=== PATIENT | female | born 1995 | race Two or more races ===

== ENCOUNTER 2016-06-05 21:43 | Observation (INO) | payer SELFPAY ==
[~2016-06-05] VITALS: Ht 160 cm; Wt 65.3 kg
[~2016-06-05 21:43] MED LIST: NITR100C62 PO
[2016-06-05] MEDS ORDERED: IV RINGERS,LACTATED 1000ML 1,000 ML IV SCH (21:45)
[2016-06-05 22:22] VITALS: BP 138/80
[2016-06-05 22:51] LABS: BILIRUBIN,URINE NEGATIVE (NEG); GLUCOSE,URINE NEGATIVE (NEG); NITRITE,URINE NEGATIVE (NEG); PH,URINE 7.5; PROTEIN,URINE NEGATIVE (NEG-TRACE); UROBILINOGEN,URINE 0.2 mg/dL (0.2 mg/dL)
[2016-06-05 23:05] LABS: RBC,URINE OCC /HPF (0-2)
[2016-06-05 23:06] LABS: BACTERIA,URINE MODERATE /HPF (0-FEW); SQUAMOUS EPITHELIAL CELL,UR MOD /LPF
[2016-06-06] MEDS ORDERED: HYDROXYZINE PAMOATE 25 MG CAPSULE PO ONE
== END 2016-06-05 23:59 | disposition home or self-care (01) ==
LOC: 3 SO LND 21:43
PROVIDERS: ADMIT Specialist; ATTEND Specialist
DX: O42.92 Full-term premature rupture of membranes, unspecified as to length of time between rupture and onset of labor (principal); O62.9 Abnormality of forces of labor, unspecified; Z3A.39 39 weeks gestation of pregnancy
CPT/HCPCS: 81001; 87086; G0378; G0379; Q0177

== ENCOUNTER 2016-06-06 03:57 | Inpatient (IN) | payer SELFPAY ==
[~2016-06-06] VITALS: Ht 160 cm; Wt 65.3 kg
[2016-06-06] MEDS ORDERED: TERBUTALINE 1 MG/ML VIAL. SQ PRN (04:00)
[2016-06-06] MEDS ORDERED: OXYTOCIN 30 UNIT/500 ML PREMIX 500 ML IV PRN ×2 (04:00→13:00)
[2016-06-06] MEDS ORDERED: 0.9 % SODIUM CHLORIDE 10 ML DISP.SYRIN. IV PRN ×2 (04:00→13:00)
[2016-06-06] MEDS ORDERED: FENTANYL PF 100 MCG/2 ML VIAL. IV PRN (04:00)
[2016-06-06] MEDS ORDERED: MAG HYDROX/ALUMINUM HYD/SIMETH 30 ML ORAL.SUSP PO PRN ×2 (04:00→13:00)
[2016-06-06] MEDS ORDERED: LIDOCAINE 1% PF 30 ML VIAL. INJ PRN (04:00)
[2016-06-06] MEDS ORDERED: ONDANSETRON PF 4 MG/2 ML VIAL. IV PRN ×2 (04:00→13:00)
[2016-06-06] MEDS ORDERED: IBUPROFEN 800 MG TABLET. PO PRN (04:00)
[2016-06-06 04:33] VITALS: BP 118/67
[2016-06-06] MEDS: IV RINGERS,LACTATED 1000ML 1,000 ML IV SCH ×5 (04:39→18:19)
[2016-06-06] MEDS: BUTORPHANOL 2 MG/ML VIAL. IV PRN ×2 (05:08→09:09)
[2016-06-06 05:30] LABS: HEMATOCRIT 29.5 % (36.0-47.0); HEMOGLOBIN 9.4 g/dL (12.0-15.5); RED BLOOD COUNT 4.14 x10^6/uL (3.50-5.40); RED CELL DISTRIBUTION WIDTH 18.2 % (11.5-14.5); WHITE BLOOD COUNT 14.4 x10^3/uL (4.0-11.0)
[2016-06-06] MEDS ORDERED: L&D EPIDURAL CASSETTE 100 ML EP ONE (11:01)
[2016-06-06] MEDS ORDERED: ROPIVacaine 0.2% IN 0.9%NACL PF 40 MG/20 ML DISP.SYRIN. ONE (11:01)
[2016-06-06] MEDS ORDERED: AMPICILLIN SODIUM 2 GM in IV NORMAL SALINE 100ML 100 ML IV ONE (12:30)
[2016-06-06 12:50] LABS: BASO # 0.1 x10^3/uL (0.0-0.2); BASO % 1 % (0-3); EOS % 0 % (0-3); HEMATOCRIT 26.2 % (36.0-47.0); HEMOGLOBIN 8.1 g/dL (12.0-15.5); LYMPH # 0.4 x10^3/uL (1.0-4.8); LYMPH % 4 % (24-48); MEAN CORPUSCULAR HEMOGLOBIN 22 pg (25-35); MEAN CORPUSCULAR HGB CONC 31 g/dL (31-37); MEAN CORPUSCULAR VOLUME 72 fL (79-100); MONO % 5 % (0-9); NEUT % 91 % (31-73); PLATELET COUNT 242 x10^3/uL (140-400); RED BLOOD COUNT 3.62 x10^6/uL (3.50-5.40); RED CELL DISTRIBUTION WIDTH 18.4 % (11.5-14.5); WHITE BLOOD COUNT 12.5 x10^3/uL (4.0-11.0)
[2016-06-06] MEDS ORDERED: CITRIC ACID/SODIUM CITRATE 30 ML SOLUTION. ONE (12:58)
[2016-06-06] MEDS ORDERED: SIMETHICONE 80 MG TAB.CHEW PO PRN (13:00)
[2016-06-06] MEDS ORDERED: DOCUSATE SODIUM 100 MG CAPSULE PO PRN (13:00)
[2016-06-06] MEDS ORDERED: MMR per PROTOCOL. MC PRN (13:00)
[2016-06-06] MEDS ORDERED: DIPHENHYDRAMINE ORAL ELIXIR 12.5 MG/5 ML. PO PRN (13:00)
[2016-06-06] MEDS ORDERED: ZOLPIDEM 5 MG TABLET. PO PRN (13:00)
[2016-06-06] MEDS ORDERED: MAGNESIUM HYDROXIDE 2,400 MG/30 ML ORAL.SUSP. PO PRN (13:00)
--- NOTE | 2016-06-06 13:01 | PDOC1 ---
OB - History Hx of Present Care: Good Care Ultrasounds: Normal mid trimester US Obstetrical Complications: None Medical Complications: None Past Family/Social History * Past Medical, Surgical, Family and Obstetric Histories reviewed from chart. Blood Type: O+ Rubella: Immune RPR/VDRL: Negative GBS Status: Negative HBsAG: Negative OB - Chief Complaint & HPI Date of Admission: Date of Admission: Jun 06, 2016 at 08:56 Chief Complaint/History : 1 Para: 0 EDC: Jun 06, 2016 Reason for admission: active labor Admission Nurse Assessment Rev: Yes Problems: OB - Admission Exam Physical Exam Vitals: VS - Last 72 Hours, by Label Date Time Temp Pulse Resp B/P Pulse Ox O2 Delivery O2 Flow Rate FiO2 06/06/16 09:09 20 Room Air 06/06/16 05:33 18 Room Air 06/06/16 05:08 20 Room Air 06/06/16 04:33 98.2 77 20 118/67 Room Air 98.2 HEENT: Normal, Nasal Mucosa Normal, Oropharynx Normal, Moist Membranes, Fontanelles Normal Heart: Regular Rate Lungs: Clear, Equal Abdomen: Gravid Extremities: Normal Pulses, No tenderness or swelling Cervical Dilatation: 3cm Effacement: 75% Station: -2 Membranes: Ruptured Amniotic Fluid: Clear Heart Rate: Tachycardia Accelerations: Accelerations Present Short Term Variability: Present Intensity: Firm Assessment/Plan TIUP Labor ACS RENETTA MERCADO MD Jun 06, 2016 13:01
[2016-06-06] MEDS ORDERED: DEXAMETHASONE SOD PHOS 20 MG/5 ML VIAL. ONE (13:13)
[2016-06-06] MEDS ORDERED: METOCLOPRAMIDE HCL 10 MG/2 ML VIAL. ONE (13:13)
[2016-06-06] MEDS ORDERED: ONDANSETRON PF 4 MG/2 ML VIAL. ONE (13:13)
[2016-06-06] MEDS ORDERED: FAMOTIDINE 20 MG/2 ML VIAL ONE (13:13)
[2016-06-06] MEDS: IBUPROFEN 800 MG TABLET. PO SCH ×2 (14:00→22:00)
[2016-06-06] MEDS ORDERED: OXYTOCIN 10 UNIT/ML VIAL. ONE ×2 (14:01→17:03)
[2016-06-06] MEDS ORDERED: FENTANYL PF 100 MCG/2 ML VIAL. ONE ×2 (14:02)
[2016-06-06] MEDS ORDERED: SUCCINYLCHOLINE 200 MG/10 ML VIAL. ONE (14:02)
[2016-06-06] MEDS ORDERED: PROPOFOL 20 ML IV ONE (14:02)
[2016-06-06 14:19] LABS: ANISOCYTOSIS SLIGHT; HYPOCHROMIA MOD; MICROCYTOSIS SLIGHT; PLT ESTIMATE ADEQUATE (ADEQUATE); POLYCHROMASIA SLIGHT
[2016-06-06] MEDS ORDERED: SEVOFLURANE 61 TO 120 MINUTES. IH ONE (14:24)
[2016-06-06] MEDS ORDERED: HYDROMORPHONE STANDARD PCA 30 ML IV PRN (14:30)
[2016-06-06] MEDS: CEFAZOLIN SODIUM 1 GM in IV NORMAL SALINE 50ML 50 ML IV SCH ×2 (16:23→22:30)
[2016-06-06] MEDS: FERROUS SULFATE 325 MG TABLET PO SCH (17:00)
[2016-06-06] MEDS ORDERED: LIDOCAINE 2% PF Vial for OR 5 ML VIAL. ONE (17:22)
[2016-06-06 18:00] VITALS: BP 132/52
[2016-06-06] MEDS: KETOROLAC TROMETHAMINE 30 MG/ML INJ. IV PRN (18:20)
[2016-06-06 18:30] VITALS: BP 107/62
[2016-06-06 20:18] VITALS: BP 97/53
[2016-06-06 22:00] VITALS: BP 110/65
[2016-06-06] MEDS: ACETAMINOPHEN 325 MG TABLET. PO PRN (22:30)
[2016-06-07 01:00] VITALS: BP 103/57
[2016-06-07] MEDS: IV RINGERS,LACTATED 1000ML 1,000 ML IV SCH (01:07)
[2016-06-07] MEDS: KETOROLAC TROMETHAMINE 30 MG/ML INJ. IV PRN (01:18)
[2016-06-07 05:11] LABS: BASO % 0 % (0-3); EOS % 0 % (0-3); LYMPH # 0.5 x10^3/uL (1.0-4.8); LYMPH % 6 % (24-48); MEAN CORPUSCULAR HEMOGLOBIN 23 pg (25-35); MEAN CORPUSCULAR HGB CONC 32 g/dL (31-37); MEAN CORPUSCULAR VOLUME 72 fL (79-100); MONO % 5 % (0-9); NEUT % 89 % (31-73); PLATELET COUNT 187 x10^3/uL (140-400); RED BLOOD COUNT 3.04 x10^6/uL (3.50-5.40); RED CELL DISTRIBUTION WIDTH 18.2 % (11.5-14.5); WHITE BLOOD COUNT 8.8 x10^3/uL (4.0-11.0)
[2016-06-07 05:14] LABS: HEMOGLOBIN 6.9 g/dL (12.0-15.5)
[2016-06-07 05:30] VITALS: BP 118/66
[2016-06-07] MEDS: CEFAZOLIN SODIUM 1 GM in IV NORMAL SALINE 50ML 50 ML IV SCH (05:36)
[2016-06-07] MEDS: ACETAMINOPHEN 325 MG TABLET. PO PRN (05:55)
[2016-06-07 06:57] LABS: ANISOCYTOSIS MOD; HYPOCHROMIA MOD; MICROCYTOSIS PRESENT; PLT ESTIMATE ADEQUATE (ADEQUATE)
[2016-06-07] MEDS: IBUPROFEN 800 MG TABLET. PO SCH ×3 (08:11→22:00)
[2016-06-07] MEDS: OXYCODONE/APAP 5/325 TABLET. PO PRN ×4 (08:11→21:03)
--- NOTE | 2016-06-07 08:12 | PDOC ---
BRIEF OPERATIVE NOTE Pre-Op Diagnosis TIUP NRFHT Post-Op Diagnosis Same Procedure Performed Primary LTC/S Surgeon Melchor Saleh Anesthesia Type: General Blood Loss 800cc Specimens Obtained Placenta Findings Dictated Complications None RENETTA MERCADO MD Jun 07, 2016 08:12
--- NOTE | 2016-06-07 08:14 | PDOC ---
Provider Note Provider Note Doing well Vital Sign - Last 24 Hours 06/06/16 06/06/16 06/06/16 06/06/16 09:09 16:25 18:00 18:30 Temp 98.6 99.6 98.6 99.6 Pulse 104 111 Resp 18 B/P 132/52 107/62 Pulse Ox 100 95 O2 Delivery Room Air Room Air Room Air Room Air 06/06/16 06/06/16 06/06/16 06/07/16 20:18 22:00 22:00 01:00 Temp 99.3 100.3 101.5 99.3 100.3 101.5 Pulse 98 95 90 Resp B/P 97/53 110/65 103/57 Pulse Ox 99 95 95 94 O2 Delivery Room Air Room Air Room Air Room Air 06/07/16 06/07/16 02:30 05:30 Temp 98.6 100.6 98.6 100.6 Pulse 87 Resp 18 B/P 118/66 Pulse Ox 94 O2 Delivery Room Air Intake and Output 06/06/16 06/06/16 06/07/16 15:00 23:00 07:00 Intake Total 1000 ml 640 ml Output Total 350 ml 790 ml Balance 1000 ml -350 ml -150 ml CBC - BMP 06/06/16 12:35 06/07/16 04:05 Incision without signs of infection cbc CXRay CCC RENETTA MERCADO MD Jun 07, 2016 08:14
--- NOTE | 2016-06-07 08:32 | RAD ---
Chest, 2 views, 06/07/2016: History: Postop fever and cough Comparison is made to a study from 06/02/2015. The heart size and pulmonary vascularity are normal. No pulmonary infiltrate is seen. Slight blunting of the posterior costophrenic angles suggests a trace amount of postoperative pleural fluid. IMPRESSION: 1. Probable tiny pleural effusions. 2. No acute pulmonary is detected.
[2016-06-07] MEDS ORDERED: FLU VACC QUAD 2016-17 (36MOS+)/PF 0.5 ML SYRINGE. VAX IM ONE (09:00)
[2016-06-07] MEDS ORDERED: INFLUENZA VAX SCREEN BY RX. MC ONE (09:00)
[2016-06-07 09:53] VITALS: BP 109/58
[2016-06-07 10:42] LABS: OBC FLU VALID
[2016-06-07] MEDS: OSELTAMIVIR 75 MG CAPSULE PO SCH ×2 (11:19→21:02)
[2016-06-07 12:30] VITALS: BP 118/68
--- NOTE | 2016-06-07 12:43 | OP ---
DATE OF SURGERY: 06/06/2016 PREOPERATIVE DIAGNOSES: 1. Term intrauterine . 2. Nonreassuring heart tones. POSTOPERATIVE DIAGNOSES: 1. Term intrauterine . 2. Nonreassuring heart tones. PROCEDURE: Primary low transverse . SURGEON: Inder Roche M.D. OPTIMIZATION SPECIALIST: Cleveland Saleh M.D. ANESTHESIA: General. ESTIMATED BLOOD LOSS: 800 mL. FLUIDS: Crystalloid. SPECIMENS: Placenta. FINDINGS: Normal uterus, tubes and ovaries, male , Apgars 7 and 8, weight 5 pounds 10 ounces. COMPLICATIONS: None. CONDITION: Stable. DESCRIPTION OF PROCEDURE: After risks, benefits, indications, alternatives discussed in detail with the patient and the patient's family. The patient was brought to the OR theater, placed in supine position with left lateral uterine displacement. After adequate general anesthesia, the patient was prepped and draped in usual sterile manner. A low transverse Pfannenstiel incision was made sharply with scalpel, carried down through the subcutaneous tissue with scalpel. Rectus fascia was nicked in the midline with a scalpel and extended laterally in each direction with the scalpel. The rectus fascia was grasped with gloved hand. The rectus muscle both bluntly and sharply with gloved hand. Same procedure was carried out on lower edge of rectus fascia. Rectus muscle split midline and extended superiorly and inferiorly with gloved hand. Parietal peritoneum was entered bluntly with gloved hand. With gentle stretch on the rectus muscle, room was made for delivery of the infant. The bladder blade was placed. A low transverse hysterotomy incision was made with a scalpel with care not to injure any underlying structures, extended laterally bluntly with gloved hand. Meconium stained fluid was noted. Gloved hand was placed within the lower uterine segment, used to elevate the head. With fundal pressure from the nursing assistants teacher, was delivered on anterior abdominal wall. cried spontaneously and moved all extremities. Cord was doubly clamped, transected cord between two clamps. The infant was handed to nursing care in attendance. Cord segment was taken for pH. Cord blood samples were also taken. The placenta delivered spontaneously intact, 3-vessel cord. Uterus was wiped free of any adherent membranes. A low transverse hysterotomy incision was reapproximated with 0 Monocryl in a running locking manner, imbricated with 0 Monocryl in a horizontal mattress stitch fashion. Bladder flap was reapproximated with 3-0 Vicryl in a running manner. Pelvic gutters were inspected and noted to be free of any blood or debris. The uterus, tubes, and ovaries appeared normal. Lower uterine segment was inspected and noted to be hemostatic. Parietal peritoneum was reapproximated with 3-0 Vicryl in a 0PDS in a running manner. This stitch reapproximated rectus muscle to the midline. Rectus muscle inspected and started to be hemostatic. Rectus fascia was reapproximated with 0 PDS in a running manner running, started at the edges, buried on the stitch. Subcutaneous tissue was irrigated copiously with warm normal saline. Margaux's fascia reapproximated with 2-0 plain in a running manner. Skin was reapproximated with 4-0 Monocryl in subcuticular fashion. Sponge, needle and instrument counts were correct x 2 per nursing staff. The patient went to postop anesthesia recovery in stable condition. INDER ROCHE MD DR: NATHANAEL/edwin JOB#: [id number] / [id number]
[2016-06-07 17:03] VITALS: BP 121/62
[2016-06-07] MEDS ORDERED: HYDROCODONE/APAP 5/325MG TABLET. PO PRN ×2 (18:15)
[2016-06-07] MEDS ORDERED: IV RINGERS,LACTATED 1000ML 1,000 ML IV SCH (19:00)
[2016-06-07 21:00] VITALS: BP 118/71
[2016-06-07] MEDS: DOCUSATE SODIUM 100 MG CAPSULE. PO PRN (21:02)
[2016-06-08 01:00] VITALS: BP 105/59
[2016-06-08] MEDS: OXYCODONE/APAP 5/325 TABLET. PO PRN ×5 (01:35→21:14)
[2016-06-08 06:28] VITALS: BP 109/67
[2016-06-08] MEDS: DOCUSATE SODIUM 100 MG CAPSULE. PO PRN ×2 (08:18→21:14)
[2016-06-08] MEDS: FERROUS SULFATE 325 MG TABLET PO SCH ×2 (08:18→16:55)
[2016-06-08] MEDS: IBUPROFEN 800 MG TABLET. PO SCH ×3 (08:19→22:00)
[2016-06-08] MEDS: OSELTAMIVIR 75 MG CAPSULE PO SCH ×2 (08:19→21:14)
[2016-06-08 12:45] VITALS: BP 116/71
[2016-06-08 17:31] VITALS: BP 92/51
[2016-06-08 21:15] VITALS: BP 105/61
[2016-06-09] MEDS: IBUPROFEN 800 MG TABLET. PO SCH ×3 (00:48→17:31)
[2016-06-09 00:50] VITALS: BP 99/61
[2016-06-09] MEDS: OXYCODONE/APAP 5/325 TABLET. PO PRN ×2 (06:22→15:25)
[2016-06-09 06:25] VITALS: BP 98/56
[2016-06-09] MEDS: OSELTAMIVIR 75 MG CAPSULE PO SCH (08:57)
[2016-06-09] MEDS: FERROUS SULFATE 325 MG TABLET PO SCH ×2 (08:58→17:27)
[2016-06-09 09:00] VITALS: BP 102/63
--- NOTE | 2016-06-09 09:20 | PATHOLOGY ---
PATHOLOGY REPORT * * * * * * * * FINAL DIAGNOSIS: 379 gram placenta of an estimated 39-weeks gestation with attached membranes and umbilical cord: - Intervillous thrombi, several. - Short umbilical cord. COMMENT: There is no evidence of an acute chorioamnionitis or villitis. (JPM:csd; d/t: 06/08/2016) REPORT ELECTRONICALLY SIGNED BY: Talon Tomas M.D. DATE/TIME: 06/09/2016 09:18 * * * * * * * * GROSS PATHOLOGY: The specimen is received in formalin, labeled "Reico, Tere" and additionally labeled "placenta with cord" on the requisition. Received is a 379 g, 16.9 x 15.5 x 3.3 cm discoid vela placenta with attached umbilical cord and membranes and a separate segment of umbilical cord. Upon reconstruction, the umbilical cord measures 23.7 cm in length and 1.2 cm in average diameter. It is white-beauchamp, rubbery, trivascular, and has a paracentral insertion, 4.2 cm from the nearest placental margin. The separate segment of umbilical cord displays 3 white-beauchamp plastic clamps. The helical twisting pattern is decreased. No umbilical strictures or knots are grossly identified. The membranes are pink-beauchamp, thin, translucent, and have a marginal insertion. The point of membrane rupture is 12.4 cm the nearest placental margin. The surface is red-beauchamp to blue-clark with a normal vessel distribution and a minimal amount of subchorionic fibrin deposition. The maternal surface is grossly complete, with intact red-brown cotyledons, adherent blood clots, and minimal calcifications. Sectioning reveals three yellow-beauchamp to red-beauchamp, poorly circumscribed, and firm lesions scattered throughout the placenta. The lesions range from 0.3-1.0 cm in greatest dimension and encompass less than 5% of the total volume of the placenta. The remaining parenchyma is dark red and spongy. Movie Shot Cameraman sections are submitted as follows: A1 umbilical cord and surface vessels A2 membrane roll A3 placental lesions A4 full-thickness section of placenta (TTL; 06/07/2016) INITIAL CPT CODE(S): A; 59275 Professional services performed by [employer] at [facility] [address] [place] [id number] Technical services performed by [employer] at [address] [place] [address], [address], [place] [address]. SPECIMEN(S) RECEIVED: A.Placenta CLINICAL HISTORY: for tachycardia, maternal temp, , EDC 06/11/16, 5lb 10oz male @ 1335 on 06/06/16, apgars 7-8-9 PATIENT: TERE COX /AGE: 2 1995 (Age: 21) PATIENT #: [id number] ALT CASE #: SPECIMEN COLLECTION DATE: 06/06/2016 SPECIMEN RECEIVED DATE: 06/07/2016 [facility] - [id number] [place] [id number] - PHONE: [phone] * * * END OF REPORT * * *
--- NOTE | 2016-06-09 18:23 | PDOC ---
OB Progress Note Date of Service 06/09/16 Time of Evaluation 1824 Problem List Problems Medical Problems: (1) Status: Acute Notes Pt. feeling well. No complaints. Flu symptoms improving. Medications Current Medications Sodium Chloride 3 ml 3 ml QSHIFT PRN IV AFTER MEDS AND BLOOD DRAWS; Start 06/06 at 04:00; Stop 06/07/16 at 00:19; Status DC Lactated Ringer's (Iv Lactated Ringers) 1,000 ml @ 125 mls/hr Q8H IV Last administered on 06/07/16 01:07; Start 06/06/16 at 04:00; Stop 06/07/16 at 18:28 ; Status DC Butorphanol Tartrate (Stadol) 2 mg PRN Q1HR PRN IV Severe labor pain Last administered on 06/06/16 09:09; Start 06/06/16 at 04:00; Stop 06/07/16 at 00:19 ; Status DC Fentanyl Citrate (Fentanyl 2ml Vial) 100 mcg PRN Q30MIN PRN IV Severe pain; Start 06/06/16 at 04:00; Stop 06/07/16 at 00:19; Status DC Acetaminophen (Tylenol) 650 mg PRN Q6HRS PRN PO MILD PAIN / TEMP Last administered on 06/07/16 05:55; Start 06/06/16 at 04:00 Ondansetron HCl (Zofran) 4 mg PRN Q4HRS PRN IV NAUSEA/VOMITING; Start 06/06/16 at 04:00; Stop 06/07/16 at 00:19; Status DC Al Hydroxide/Mg Hydroxide (Mylanta Plus Xs) 30 ml PRN Q4HRS PRN PO HEARTBURN / GAS; Start 06/06/16 at 04:00; Stop 06/07/16 at 00:19; Status DC Terbutaline Sulfate (Brethine) 0.25 mg 1X PRN PRN SQ SEE COMMENTS; Start at 04:00; Stop 06/07/16 at 00:19; Status DC Lidocaine HCl 30 ml 30 ml 1X PRN PRN INJ SEE COMMENTS; Start 06/06/16 at 04:00 ; Stop 06/07/16 at 00:19; Status DC Oxytocin/Sodium Chloride (Oxytocin Premix Infusion) 500 ml @ 0 mls/hr CONT PRN PRN IV Post delivery bleeding; Start 06/06/16 at 04:00; Stop 06/07/16 at 18:28; Status DC Ibuprofen 800 mg 800 mg PRN Q6HRS PRN PO PAIN; Start 06/06/16 at 04:00; Stop at 00:19; Status DC Ropivacaine/ Fentanyl/NS (Zfuaikbg-Tuirj-MJ 3 Mcg-0.1%) 100 ml @ As Directed STK-MED ONCE EP Last administered on 06/06/16 11:36; Start 06/06/16 at 11:01; Stop 06/06/16 at 11:02; Status DC Ropivacaine 40 mg 40 mg STK-MED ONCE .ROUTE Last administered on 06/06/16 11: 35; Start 06/06/16 at 11:01; Stop 06/06/16 at 11:02; Status DC Ampicillin Sodium/ Sodium Chloride (Omnipen/Iv Sodium Chloride 0.9% 100ml) 100 ml @ 200 mls/hr 1X ONCE IV Last administered on 06/06/16 12:26; Start at 12:30; Stop 06/07/16 at 00:19; Status DC Citric Acid/ Sodium Citrate (Bicitra) 30 ml STK-MED ONCE .ROUTE Last administered on 06/06/16 13:01; Start 06/06/16 at 12:58; Stop 06/06/16 at 12:59 ; Status DC Sodium Chloride 3 ml 3 ml QSHIFT PRN IV AFTER MEDS AND BLOOD DRAWS; Start 06/06 at 13:00; Stop 06/07/16 at 18:28; Status DC Oxytocin/Sodium Chloride (Oxytocin Premix Infusion) 500 ml @ 125 mls/hr CONT PRN IV EXCESSIVE POST- BLEEDING; Start 06/06/16 at 13:00; Stop 06/06/16 at 20:59; Status DC Ibuprofen (Motrin) 800 mg Q8HRS PO Last administered on 06/09/16 17:31; Start 06/06/16 at 14:00 Ondansetron HCl (Zofran) 4 mg PRN Q6HRS PRN IV NAUSEA/VOMITING; Start 06/06/16 at 13:00; Stop 06/07/16 at 18:28; Status DC Docusate Sodium (Colace) 100 mg PRN BID PRN PO CONSTIPATION Last administered on 06/07/16 08:10; Start 06/06/16 at 13:00; Stop 06/07/16 at 13:58; Status DC Magnesium Hydroxide (Milk Of Magnesia) 2,400 mg PRN DAILY PRN PO CONSTIPATION; Start 06/06/16 at 13:00 Al Hydroxide/Mg Hydroxide (Mylanta Plus Xs) 30 ml PRN Q4HRS PRN PO HEARTBURN / GAS; Start 06/06/16 at 13:00 Simethicone (Gas-X) 80 mg PRN AFTMEALHC PRN PO GAS / BLOATING; Start 06/06/16 at 13:00 Diphenhydramine HCl (Benadryl Oral Elixir) 12.5 mg PRN Q6HRS PRN PO ITCHING; Start 06/06/16 at 13:00 Ferrous Sulfate (Feosol) 325 mg BIDWMEALS PO Last administered on 06/09/16 17: 27; Start 06/06/16 at 17:00 Zolpidem Tartrate (Ambien) 5 mg PRN QHS PRN PO INSOMNIA, MAY REPEAT X1; Start 06/06/16 at 13:00 Info (Do NOT chart on this placeholder) 1 ea PRN 1X PRN MC SEE COMMENTS; Start 06/06/16 at 13:00; Stop 06/07/16 at 00:19; Status DC Info (Do NOT chart on this placeholder) 1 ea PRN 1X PRN MC SEE COMMENTS; Start 06/06/16 at 13:00; Stop 06/07/16 at 00:19; Status DC Oxycodone/ Acetaminophen (Percocet 5/325) 1 tab PRN Q4HRS PRN PO MILD PAIN Last administered on 06/09/16 15:25; Start 06/06/16 at 13:00 Oxycodone/ Acetaminophen 2 tab 2 tab PRN Q4HRS PRN PO MODERATE PAIN, SEVERE PAIN Last administered on 06/08/16 08:19; Start 06/06/16 at 13:00 Cefazolin Sodium/ Sodium Chloride (Ancef/Iv Sodium Chloride 0.9% 50ml) 50 ml @ 100 mls/hr Q8HRS IV Last administered on 3/27/17at 05:36; Start 06/06/16 at 14: 00; Stop 06/07/16 at 06:29; Status DC Dexamethasone Sodium Phosphate (Decadron) 20 mg STK-MED ONCE .ROUTE ; Start at 13:13; Stop 06/06/16 at 13:14; Status DC Famotidine (Pepcid) 20 mg STK-MED ONCE .ROUTE ; Start 06/06/16 at 13:13; Stop at 13:14; Status DC Metoclopramide HCl (Reglan) 10 mg STK-MED ONCE .ROUTE ; Start 06/06/16 at 13:13 ; Stop 06/06/16 at 13:14; Status DC Ondansetron HCl (Zofran) 4 mg STK-MED ONCE .ROUTE ; Start 06/06/16 at 13:13; Stop 06/06/16 at 13:14; Status DC Oxytocin 10 unit 10 unit STK-MED ONCE .ROUTE ; Start 06/06/16 at 14:01; Stop at 14:02; Status DC Propofol (Diprivan) 20 ml @ As Directed STK-MED ONCE IV ; Start 06/06/16 at 14: 02; Stop 06/06/16 at 14:03; Status DC Fentanyl Citrate (Fentanyl 2ml Vial) 100 mcg STK-MED ONCE .ROUTE ; Start at 14:02; Stop 06/06/16 at 14:03; Status DC Succinylcholine Chloride (Anectine) 200 mg STK-MED ONCE .ROUTE ; Start 06/06/16 at 14:02; Stop 06/06/16 at 14:03; Status DC Fentanyl Citrate 100 mcg 100 mcg STK-MED ONCE .ROUTE ; Start 06/06/16 at 14:02; Stop 06/06/16 at 14:03; Status DC Hydromorphone HCl (Dilaudid Standard CLERICAL CAR CHECKER) 30 ml @ 0 mls/hr CONT PRN PRN IV PROTOCOL Last administered on 06/06/16t 16:25; Start 06/06/16 at 14:30; Stop at 18:28; Status DC Sevoflurane (Ultane) 60 ml STK-MED ONCE IH ; Start 06/06/16 at 14:24; Stop 06/06 at 14:25; Status DC Oxytocin (Pitocin) 10 unit STK-MED ONCE .ROUTE ; Start 06/06/16 at 17:03; Stop 06/06/16 at 17:04; Status DC Lidocaine HCl (Lidocaine Pf 2% Vial) 5 ml STK-MED ONCE .ROUTE ; Start 06/06/16 at 17:22; Stop 06/06/16 at 17:23; Status DC Ketorolac Tromethamine (Toradol) 30 mg PRN Q6HRS PRN IV PAIN Last administered on 06/07/16 01:18; Start 06/06/16 at 17:30; Stop 06/07/16 at 18:28; Status DC Info (Do NOT chart on this placeholder) 1 each 1X ONCE MC ; Start 06/07/16 at 09:00; Stop 06/07/16 at 09:01; Status UNV Influenza Virus Vaccine Quadrival (Fluarix Quad [id number] Syringe) 0.5 ml ONCE ONCE VAX IM ; Start 06/07/16 at 09:00; Stop 06/07/16 at 18:28; Status DC Oseltamivir Phosphate (Tamiflu) 75 mg BID PO Last administered on 06/09/16 08: 57; Start 06/07/16 at 11:30; Stop 06/11/16 at 21:01 Docusate Sodium (Colace) 100 mg PRN BID PRN PO CONSTIPATION Last administered on 06/08/16 08:18; Start 06/07/16 at 14:00 Acetaminophen/ Hydrocodone Bitart (Lortab 5/325) 2 tab PRN Q4HRS PRN PO PAIN; Start 06/07/16 at 18:15; Stop 06/07/16 at 18:28; Status DC Acetaminophen/ Hydrocodone Bitart 1 tab 1 tab PRN Q4HRS PRN PO PAIN; Start at 18:15; Stop 06/07/16 at 18:28; Status DC Lactated Ringer's (Iv Lactated Ringers) 1,000 ml @ 100 mls/hr Q10H IV ; Start 06/07/16 at 19:00; Stop 06/07/16 at 19:00; Status DC Active Scripts Active Reported No Known Medications Prior To Admisstion (Info) Each 1 Each MC Exam Lungs: CTA rina. Abd: soft, mild tenderness, fundus firm INcision site: clean, dry and intact Assessment POD#3 s/p c/s and flu Plan of Care: See new orders (D/c home.) JULIETH PAGAN Jr, MD Jun 09, 2016 18:23
--- NOTE | 2016-06-09 18:24 | DISCH ---
DISCHARGE INSTRUCTIONS Condition on Discharge Condition on Discharge: Stable Activity After Discharge Activity Instructions for Disc: Activity as tolerated Lifting Instructions after Dis: No heavy lifting Driving Instructions after Dis: Do not drive today Diet after Discharge Diet after Discharge: Regular Contacting the DRHanna after DC Call your doctor for: Concerns you may have Follow-Up Follow up with: Ruchi in 1 week. JULIETH PAGAN Jr, MD Jun 09, 2016 18:24
[2016-06-09] MEDS ORDERED: HYDR-2678 PO (18:25)
[2016-06-09] MEDS ORDERED: DOCU-27 PO (18:25)
[2016-06-09] MEDS ORDERED: IBUP-1060 PO (18:25)
[2016-06-09] MEDS ORDERED: OSEL75CA PO (18:25)
[2016-06-09 18:41] VITALS: BP 104/65
== END 2016-06-09 19:00 | disposition home or self-care (01) | DRG 765 ==
LOC: 3 SO LND 03:57 → OBSVTOIN 08:56 → 3 SO LND 17:30
PROVIDERS: ADMIT Specialist; ATTEND Specialist
PROC: 10D00Z1 Extraction of Products of Conception, Low, Open Approach (ICD-10-PCS; principal; 2016-06-06)
DX: O34.211 Maternal care for low transverse scar from previous cesarean delivery (principal); D62 Acute posthemorrhagic anemia; O77.0 Labor and delivery complicated by meconium in amniotic fluid; O76 Abnormality in fetal heart rate and rhythm complicating labor and delivery; Z3A.39 39 weeks gestation of pregnancy; Z37.0 Single live birth
CPT/HCPCS: 36415; 71020; 85007; 85027; 86593; 86850; 86900; 86901; 87804; 88307; G0378; G0379; J0290; J0330; J0690; J1100; J1170; J1885; J2405; J2590; J2704; J2765; J2795; J3010; J7120; S0028

== ENCOUNTER 2019-01-01 14:08 | Emergency (ER) | payer SELFPAY ==
[~2019-01-01] VITALS: Ht 165.1 cm; Wt 56.7 kg
[2019-01-01 14:08] VITALS: BP 104/53
[~2019-01-01 14:08] MED LIST changes: +DOCU-109 PO; +HYDR-2678 PO; +IBUP-1060 PO; +OSEL75CA PO
[2019-01-01 15:15] LABS: BASO % 0 % (0-3); EOS # 0.1 x10^3/uL (0.0-0.7); EOS % 2 % (0-3); HEMATOCRIT 25.8 % (36.0-47.0); HEMOGLOBIN 7.7 g/dL (12.0-15.5); LYMPH # 1.5 x10^3/uL (1.0-4.8); LYMPH % 17 % (24-48); MEAN CORPUSCULAR HEMOGLOBIN 18 pg (25-35); MEAN CORPUSCULAR HGB CONC 30 g/dL (31-37); MEAN CORPUSCULAR VOLUME 60 fL (79-100); MONO # 0.5 x10^3/uL (0.0-1.1); MONO % 6 % (0-9); NEUT # 6.6 x10^3/uL (1.8-7.7); NEUT % 75 % (31-73); PLATELET COUNT 306 x10^3/uL (140-400); RED BLOOD COUNT 4.29 x10^6/uL (3.50-5.40); RED CELL DISTRIBUTION WIDTH 19.7 % (11.5-14.5); WHITE BLOOD COUNT 8.7 x10^3/uL (4.0-11.0)
[2019-01-01 15:18] LABS: CALCIUM 8.5 mg/dL (8.5-10.1); CREATININE 0.6 mg/dL (0.6-1.0); GFR 123.9; POTASSIUM 3.3 mmol/L (3.5-5.1)
[2019-01-01 15:25] LABS: ALBUMIN 3.7 g/dL (3.4-5.0); TOTAL BILIRUBIN 0.3 mg/dL (0.2-1.0); TOTAL PROTEIN 7.5 g/dL (6.4-8.2)
[2019-01-01 15:28] LABS: BILIRUBIN,URINE NEGATIVE (NEG); CLARITY,URINE CLEAR; COLOR,URINE YELLOW; NITRITE,URINE NEGATIVE (NEG); PH,URINE 5.5; PROTEIN,URINE NEGATIVE (NEG-TRACE); UROBILINOGEN,URINE 0.2 mg/dL (0.2 mg/dL)
--- NOTE | 2019-01-01 15:28 | PHYS DOC ---
Past Medical History Past Medical History: No Pertinent History (ISAMAR LABOY APRN) Past Surgical History: No Surgical History (ISAMAR LABOY APRN) Alcohol Use: None Drug Use: None (ISAMRA LABOY APRN) Attending Signature I have participated in the care of this patient and I have reviewed and agree with all pertinent clinical information above including history, exam, and recommendations. (ALCI MITCHELL MD) Adult General Chief Complaint Chief Complaint: VAGINAL BLEEDING HPI HPI Patient is a 23 year old female who presents with states her last a period was November 23, 2018. Patient states she took a home test that was +2 weeks ago. Patient states today she awoke and began having vaginal bleeding and cramping without clots. Patient denies any dysuria symptoms. Patient states she also has white vaginal discharge. Patient denies any sexual transmitted disease concerns and does not want to be treated today. This is her second and she has 1 other life 2-year-old child. Patient currently is looking for an OB doctor. (ISAMAR LABOY APRN) Review of Systems Review of Systems GI: Low mid abdominal pain, denies nausea, vomiting, bloody stools or diarrhea [] : Vaginal discharge. Denies dysuria or hematuria [] All other systems were reviewed and found to be within normal limits, except as documented in this note. (ISAMAR LABOY APRN) Current Medications Current Medications Current Medications Medications (Trade) Dose Ordered Sig/Ramy Start Time Stop Time Status Last Admin Dose Admin Fentanyl Citrate (Fentanyl 2ml Vial) 50 mcg 1X ONCE 01/01/19 16:00 01/01/19 16:02 DC 01/01/19 16:09 50 MCG (LACI MITCHELL MD) Allergies Allergies Allergies Coded Allergies Type Severity Reaction Last Updated Verified No Known Drug Allergies 10/26/15 No (LACI MITCHELL MD) Physical Exam Physical Exam Constitutional: Well developed, well nourished, no acute distress, non-toxic appearance. [] Lungs & Thorax: Bilateral breath sounds clear to auscultation [] Abdomen: Bowel sounds normal, soft, Low mid abdominal tenderness, no masses, no pulsatile masses. [] Skin: Warm, dry, no erythema, no rash. [] Back: No tenderness, no CVA tenderness. [] Extremities: No tenderness, no cyanosis, no clubbing, ROM intact, no edema. [] Neurologic: Alert and oriented X 3, normal motor function, normal sensory function, no focal deficits noted. [] Psychologic: Affect normal, judgement normal, mood normal. [] (ISAMAR LABOY APRN) Current Patient Data Vital Signs Vital Signs Date Time Temp Pulse Resp B/P (MAP) Pulse Ox O2 Delivery O2 Flow Rate FiO2 01/01/19 14:08 98.2 77 17 104/53 (70) 97 Room Air 98.2 (LACI MITCHELL MD) Lab Values Laboratory Tests Test 01/01/19 14:05 01/01/19 14:26 01/01/19 14:40 Urine Color Yellow Urine Clarity Clear Urine pH 5.5 Urine Specific [place] 1.025 Urine Protein Negative mg/dL (NEG-TRACE) Urine Glucose (UA) Negative mg/dL (NEG) Urine Ketones (Stick) Negative mg/dL (NEG) Urine Blood Large (NEG) Urine Nitrite Negative (NEG) Urine Bilirubin Negative (NEG) Urine Urobilinogen Dipstick 0.2 mg/dL (0.2 mg/dL) Urine Leukocyte Esterase Small (NEG) Urine RBC 3-5 /HPF (0-2) Urine WBC 5-10 /HPF (0-4) Urine Squamous Epithelial Cells Few /LPF Urine Bacteria 0 /HPF (0-FEW) Urine Mucus Mod /LPF POC Urine HCG, Qualitative Hcg negative (Negative) White Blood Count 8.7 x10^3/uL (4.0-11.0) Red Blood Count 4.29 x10^6/uL (3.50-5.40) Hemoglobin 7.7 g/dL (12.0-15.5) L Hematocrit 25.8 % (36.0-47.0) L Mean Corpuscular Volume 60 fL (79-100) L Mean Corpuscular Hemoglobin 18 pg (25-35) L Mean Corpuscular Hemoglobin Concent 30 g/dL (31-37) L Red Cell Distribution Width 19.7 % (11.5-14.5) H Platelet Count 306 x10^3/uL (140-400) Neutrophils (%) (Auto) 75 % (31-73) H Lymphocytes (%) (Auto) 17 % (24-48) L Monocytes (%) (Auto) 6 % (0-9) Eosinophils (%) (Auto) 2 % (0-3) Basophils (%) (Auto) 0 % (0-3) Neutrophils # (Auto) 6.6 x10^3/uL (1.8-7.7) Lymphocytes # (Auto) 1.5 x10^3/uL (1.0-4.8) Monocytes # (Auto) 0.5 x10^3/uL (0.0-1.1) Eosinophils # (Auto) 0.1 x10^3/uL (0.0-0.7) Basophils # (Auto) 0.0 x10^3/uL (0.0-0.2) Platelet Estimate Adequate (ADEQUATE) Polychromasia Slight Hypochromasia Mod Anisocytosis Slight Microcytosis Mod Maternal Serum HCG Beta Subunit 3 mIU/mL (0-5) Sodium Level 145 mmol/L (136-145) Potassium Level 3.3 mmol/L (3.5-5.1) L Chloride Level 107 mmol/L (98-107) Carbon Dioxide Level 25 mmol/L (21-32) Anion Gap 13 (6-14) Blood Urea Nitrogen 12 mg/dL (7-20) Creatinine 0.6 mg/dL (0.6-1.0) Estimated GFR (Cockcroft-Gault) 123.9 BUN/Creatinine Ratio 20 (6-20) Glucose Level 102 mg/dL (70-99) H Calcium Level 8.5 mg/dL (8.5-10.1) Total Bilirubin 0.3 mg/dL (0.2-1.0) Aspartate Amino Transferase (AST) 11 U/L (15-37) L Alanine Aminotransferase (ALT) 12 U/L (14-59) L Alkaline Phosphatase 54 U/L (46-116) Total Protein 7.5 g/dL (6.4-8.2) Albumin 3.7 g/dL (3.4-5.0) Albumin/Globulin Ratio 1.0 (1.0-1.7) Laboratory Tests 01/01/19 14:40 Laboratory Tests 01/01/19 14:40 Microbiology 01/01/19 Wet Prep - Final, Complete (LACI MITCHELL MD) EKG EKG [] (ISAMAR LABOY APRN) Radiology/Procedures Radiology/Procedures [] (ISAMAR LABOY APRN) Impressions: [facility] [address] [place] [address] IMAGING REPORT Signed PATIENT: MELISSA MARTINEZ ACCOUNT: [id number] : 1995 LOCATION: ER AGE: 23 SEX: F EXAM STATUS: REG ER ORD. PHYSICIAN: ISAMAR LABOY APRN REASON: vaginal bleeding, pain PROCEDURE: PELVIS COMPLETE Exam: Ultrasound pelvis Indication: Vaginal bleeding Technique: Real-time grayscale and color Doppler images of the pelvis were obtained by the department form grader. Transabdominal images only. Comparisons: None FINDINGS: Uterus measures 9.2 x 5.2 x 5.3 cm. Endometrium measures 7 mm in thickness. Right ovary measures 3.1 x 1.9 x 2.1 cm. Left ovary measures 3.2 x 2.3 x 2.3 cm. Vascular flow is noted within the ovaries bilaterally. No free fluid. IMPRESSION: Normal sonographic appearance of the uterus and ovaries. Electronically signed by: Danny Wren MD (01/01/2019 5:09 PM) [id number] DICTATED and SIGNED BY: DANNY WREN MD DATE: 01/01/191708 (ISAMAR LABOY APRN) Course & Med Decision Making Course & Med Decision Making Abdomen soft with Low mid abdomen tenderness. Skin pink warm and dry. Alert and oriented. Ambulatory with a steady gait. Denies nausea, vomiting, diarrhea, fever, back pain, headache, dizziness, shortness of air, chest pain, numbness or tingling, bloody stools. Patient hemoglobin is 7.7. When looking back patient has had low hemoglobin in the past. Ultrasound shows no acute findings. Ultrasound shows there is no fetus in the uterus. Patient is likely on her menstrual period. Pelvic Exam: Mechanical Maintenance Supervisor present Abdomen: Low mid Abdomen External Genitalia: Normal Skin Speculum: Normal vaginal mucosa, Bloody cervical discharge Bimanual: No adnexal masses or tenderness, No CMT (ISAMAR LABOY APRN) Dragon Disclaimer Dragon Disclaimer This electronic medical record was generated, in whole or in part, using a voice recognition dictation system. (ISAMAR LABOY APRN) Departure Departure Impression: Primary Impression: Abdominal pain Additional Impressions: Vaginal bleeding UTI (urinary tract infection) Disposition: 01 HOME, SELF-CARE Condition: STABLE Referrals: RENETTA MERCADO MD (PCP) Patient Instructions: Abdominal Pain (Nonspecific), Anemia, Nonspecific-Brief Additional Instructions: Follow up with primary care provider especially for you anemia. Take Ibuprofen or Tylenol for pain. Scripts Iron, Carb & Gluc/Fa/B12/C/Dss (FERRALET 90 DUAL-IRON TABLET) 1 Each Tablet 1 TAB PO DAILY, #30 TAB 3 Refills Prov: ISAMAR LABOY APRN 01/01/19 Cephalexin (KEFLEX) 500 Mg Capsule 1 CAP PO BID for 7 Days, #14 CAP 0 Refills Prov: ISAMAR LABOY APRN 01/01/19 Problem Qualifiers Primary Impression: Abdominal pain Abdominal location: lower abdomen, unspecified Qualified Codes: R10.30 - Lower abdominal pain, unspecified Additional Impressions: UTI (urinary tract infection) Urinary tract infection type: site unspecified Hematuria presence: with hematuria Qualified Codes: N39.0 - Urinary tract infection, site not specified; R31.9 - Hematuria, unspecified ISAMAR LABOY APRN Jan 01, 2019 15:28 LACI MITCHELL MD Jan 02, 2019 06:08
[2019-01-01 15:46] LABS: BACTERIA,URINE 0 /HPF (0-FEW); SQUAMOUS EPITHELIAL CELL,UR FEW /LPF
[2019-01-01] MEDS ORDERED: fentaNYL PF VIAL 100 MCG/2 ML VIAL IVP ONE (16:00)
--- NOTE | 2019-01-01 17:12 | RAD ---
Exam: Ultrasound pelvis Indication: Vaginal bleeding Technique: Real-time grayscale and color Doppler images of the pelvis were obtained by the department recording studio internship. Transabdominal images only. Comparisons: None FINDINGS: Uterus measures 9.2 x 5.2 x 5.3 cm. Endometrium measures 7 mm in thickness. Right ovary measures 3.1 x 1.9 x 2.1 cm. Left ovary measures 3.2 x 2.3 x 2.3 cm. Vascular flow is noted within the ovaries bilaterally. No free fluid. IMPRESSION: Normal sonographic appearance of the uterus and ovaries. Electronically signed by: Danny Barcenas MD (01/01/2019 5:09 PM) [facility]
[2019-01-01] MEDS ORDERED: CEPH-264 PO (17:20)
[2019-01-01] MEDS ORDERED: IRON1TAB2 PO (17:23)
[2019-01-01 17:59] LABS: HYPOCHROMIA MOD; PLT ESTIMATE ADEQUATE (ADEQUATE)
[2019-01-01 18:00] LABS: ANISOCYTOSIS SLIGHT; MICROCYTOSIS MOD; POLYCHROMASIA SLIGHT
[2019-01-02 18:10] LABS: GC PROBE Negative (Negative)
== END 2019-01-01 17:45 | disposition home or self-care (01) ==
LOC: ER 14:08
DX: N39.0 Urinary tract infection, site not specified (principal); N93.9 Abnormal uterine and vaginal bleeding, unspecified
CPT/HCPCS: 36415; 76856; 80053; 81001; 81025; 84702; 85025; 86850; 86900; 86901; 87086; 87491; 87591; 96374; 99285; J3010; Q0111

== ENCOUNTER 2019-11-02 01:34 | Emergency (ER) | payer SELFPAY ==
[~2019-11-02] VITALS: Ht 165.1 cm; Wt 61.0 kg
[~2019-11-02 01:34] MED LIST changes: +CEPH-264 PO; +IRON1TAB2 PO
[2019-11-02 03:29] LABS: BILIRUBIN,URINE NEGATIVE (NEG); CLARITY,URINE CLEAR; COLOR,URINE YELLOW; NITRITE,URINE NEGATIVE (NEG); PROTEIN,URINE NEGATIVE (NEG-TRACE)
[2019-11-02] MEDS ORDERED: IV NORMAL SALINE 1000ML BAG 1,000 ML IV ONE (03:30)
[2019-11-02 03:38] LABS: BACTERIA,URINE FEW /HPF (0-FEW); RBC,URINE 0 /HPF (0-2)
[2019-11-02 04:29] LABS: BASO % 0 % (0-3); EOS # 0.1 x10^3/uL (0.0-0.7); EOS % 1 % (0-3); HEMATOCRIT 27.8 % (36.0-47.0); HEMOGLOBIN 8.9 g/dL (12.0-15.5); LYMPH # 2.1 x10^3/uL (1.0-4.8); LYMPH % 26 % (24-48); MEAN CORPUSCULAR HEMOGLOBIN 21 pg (25-35); MEAN CORPUSCULAR HGB CONC 32 g/dL (31-37); MEAN CORPUSCULAR VOLUME 66 fL (79-100); MONO # 0.7 x10^3/uL (0.0-1.1); MONO % 9 % (0-9); NEUT # 5.2 x10^3/uL (1.8-7.7); NEUT % 64 % (31-73); PLATELET COUNT 292 x10^3/uL (140-400); RED BLOOD COUNT 4.23 x10^6/uL (3.50-5.40); RED CELL DISTRIBUTION WIDTH 19.4 % (11.5-14.5); WHITE BLOOD COUNT 8.1 x10^3/uL (4.0-11.0)
--- NOTE | 2019-11-02 04:33 | RAD ---
INDICATION: Reason: SEVERE LOWER ABD PAIN. PAINFUL URINATION. NURSE STATES PT IS 11WKS / Spl. Instructions: / History: COMPARISON: December 2018 TECHNIQUE: Grayscale and color ultrasound images uterus and adnexa. FINDINGS: Uterus: 108 x 75 x 73 mm. Intrauterine gestational sac is identified with a pole with crown-rump length of 59 mm with estimated gestational age of 12 weeks and 3 days. heart rate is 162. Cervical length is 37 mm. 2 early in to adequately assess placenta. Gestational sac unremarkable. Right Ovary: 35 x 15 x 17 mm. Left Ovary: 27 x 19 x 19 mm. Vascular flow identified to bilateral ovaries. No debris is seen in the maternal bladder IMPRESSION: * Intrauterine is identified with estimated gestational age of 12 weeks and 3 days and positive heart rate. Recommend routine anomaly screen at 18-22 weeks. Electronically signed by: Chauncey Benoit MD (11/02/2019 4:31 AM) [id number]
--- NOTE | 2019-11-02 04:35 | PHYS DOC ---
Past Medical History Past Medical History: No Pertinent History Past Surgical History: No Surgical History Smoking Status: Never Smoker Alcohol Use: None Drug Use: None General Adult EDM: Chief Complaint: PAIN ON URINATION HPI: HPI: Patient is a 24-year-old G4, P1 at 11 weeks gestation who presents to the [facility] room complaining of lower abdominal burning and pain. This started over the last couple of days. She has some associated dysuria. She denies any vaginal bleeding. She has not yet seen her MOTORCYCLE POLICE OFFICER for this . She denies any flank pain. She has not had any fever. Review of Systems: Review of Systems: General: Denies fever, chills, sweats, fatigue Eyes: Denies drainage, blurred vision, eye redness HENT: Denies rhinorrhea, sore throat, earache Respiratory: Denies cough, shortness of breath, wheezing Cardiac: Denies edema, palpitations, chest pain GI: Denies Nausea, vomiting reports abdominal pain MSK: Denies back pain, neck pain Skin: Denies rash, jaundice Neuro: Denies headache, dizziness Psychiatric: Denies SI/HI Heart Score: Risk Factors: Risk Factors: DM, Current or recent (<one month) smoker, HTN, HLP, family history of CAD, obesity. Risk Scores: Score 0 - 3: 2.5% MACE over next 6 weeks - Discharge Home Score 4 - 6: 20.3% MACE over next 6 weeks - Admit for Clinical Observation Score 7 - 10: 72.7% MACE over next 6 weeks - Early Invasive Strategies Current Medications: Current Medications Medications (Trade) Dose Ordered Sig/Ramy Start Time Stop Time Status Last Admin Dose Admin Sodium Chloride 1,000 ml @ 1,000 mls/hr 1X ONCE 11/02/19 03:30 11/02/19 04:29 DC 11/02/19 03:30 1,000 MLS/HR Allergies: Allergies: Allergies Coded Allergies Type Severity Reaction Last Updated Verified No Known Drug Allergies 10/26/15 No Physical Exam: PE: General: Awake, alert, NAD. Well Nourished, well hydrated. Cooperative HEENT: Atraumatic, EOMI, PERRL, airway patent, moist oral mucosa Neck: Supple, trachea midline Respiratory: CTA bilaterally, normal effort, no wheezing/crackles CV: RRR, no murmur, cap refill <2 GI: Soft, nondistended, nontender, no masses MSK: No obvious deformities Skin: Warm, dry, intact Neuro: A&O x3, speech NL, sensory and motor grossly intact, no focal deficits Psych: Normal affect, normal mood, not suicidal or homicidal Current Patient Data: Labs: Laboratory Tests Test 11/02/19 01:51 11/02/19 03:10 POC Urine HCG, Qualitative Hcg positive (Negative) Urine Collection Type Unknown Urine Color Yellow Urine Clarity Clear Urine pH 6.0 (<5.0-8.0) Urine Specific [place] >=1.030 (1.000-1.030) Urine Protein Negative mg/dL (NEG-TRACE) Urine Glucose (UA) Negative mg/dL (NEG) Urine Ketones (Stick) Negative mg/dL (NEG) Urine Blood Negative (NEG) Urine Nitrite Negative (NEG) Urine Bilirubin Negative (NEG) Urine Urobilinogen Dipstick 1.0 mg/dL (0.2 mg/dL) Urine Leukocyte Esterase Negative (NEG) Urine RBC 0 /HPF (0-2) Urine WBC 1-4 /HPF (0-4) Urine Bacteria Few /HPF (0-FEW) Vital Signs: Vital Signs Date Time Temp Pulse Resp B/P (MAP) Pulse Ox O2 Delivery O2 Flow Rate FiO2 11/02/19 02:54 98.4 68 20 103/37 (59) 100 Room Air 98.4 EKG: EKG: [] Radiology/Procedures: Radiology/Procedures: [] Course & Med Decision Making: Course & Med Decision Making Pertinent Labs and Imaging studies reviewed. (See chart for details) Patient is a 24-year-old female who presents the emergency room complaining of lower abdominal pain and dysuria. Patient is overall well-appearing. She does not have any vaginal bleeding at this time and she does not need RhoGam. Ultrasound was ordered to evaluate . UA, CBC, BMP were ordered. Patient was given fluids due to dehydration. Ultrasound is normal at this time and shows a 12-week fetus. UA shows a few bacteria but not a significant UTI. She will be placed on Macrobid for this. I have discussed sexually transmitted diseases with the patient and offered her pelvic exam. At this time patient would like to wait to see her MOTORCYCLE POLICE OFFICER to have a pelvic exam. She is no concern for sexually transmitted diseases. We will do a gonorrhea chlamydia test off of urine. She does not want prophylactic treatment at this time. Patient's test results and vitals while in the ED were fully reviewed and discussed with the patient. Patient is stable and at this time does not need admission to the hospital. We have discussed strict return precautions and the importance of following up with their Primary Care Physician. Patient stated understanding and was given an opportunity to ask any questions. Patient is in agreement with plan. Dragon Disclaimer: Dragon Disclaimer: This electronic medical record was generated, in whole or in part, using a voice recognition dictation system. Departure Departure Impression: Primary Impression: Abdominal pain during in first trimester Disposition: HOME, SELF-CARE Condition: STABLE Referrals: NO PCP (PCP) Patient Instructions: Abdominal Pain During Scripts Nitrofurantoin Monohyd/M-Cryst (MACROBID 100 MG CAPSULE) 100 Mg Capsule 1 CAP PO BID for 7 Days, #14 CAP 0 Refills Prov: DORA ALLEN MD 11/02/19 Justicifation of Admission Dx: Justifications for Admission: Justification of Admission Dx: No DORA ALLEN MD Nov 02, 2019 04:35
[2019-11-02 04:43] LABS: CALCIUM 8.4 mg/dL (8.5-10.1); CREATININE 0.6 mg/dL (0.6-1.0); GFR 122.8
[2019-11-02] MEDS ORDERED: NITR100C62 PO (05:08)
[2019-11-02 05:15] VITALS: BP 108/58
[2019-11-02 06:46] LABS: ANISOCYTOSIS SLIGHT; MICROCYTOSIS SLIGHT; PLT ESTIMATE ADEQUATE (ADEQUATE)
== END 2019-11-02 05:23 | disposition home or self-care (01) ==
LOC: ER 01:34
DX: O26.891 Other specified pregnancy related conditions, first trimester (principal); R10.30 Lower abdominal pain, unspecified; R30.0 Dysuria; Z3A.11 11 weeks gestation of pregnancy
CPT/HCPCS: 36415; 76801; 80048; 81001; 81025; 85025; 87491; 87591; 96360; 96361; 99284; J7030

== ENCOUNTER 2021-03-06 13:45 | Emergency (ER) | payer MEDICAID ==
[~2021-03-06] VITALS: Ht 162.6 cm; Wt 59.8 kg
--- NOTE | 2021-03-06 14:10 | PHYS DOC ---
Past Medical History Past Medical History: No Pertinent History (ISAMAR LABOY OUTPATIENT CLERK) Past Surgical History: No Surgical History (ISAMAR LABOY APRN) Smoking Status: Never Smoker Alcohol Use: None Drug Use: None (ISAMAR LABOY APRN) General Adult EDM: Chief Complaint: COUGH HPI: HPI: Patient is a 25 year old female who presents with for the last 4 days she has had nausea, vomiting, cough, shortness of air, fever, body aches. Her kids are positive for Covid. She is not vaccinated. She denies any past medical history. She states that she tried to take some Tylenol today but has been vomiting back up. (ISAMAR LABOY OUTPATIENT CLERK) Review of Systems: Review of Systems: Constitutional: + fever or +chills. [] Eyes: Denies change in visual acuity. [] HENT: +nasal congestion or denies sore throat. [] Respiratory: + cough or +shortness of breath. [] Cardiovascular: Denies chest pain or edema. [] GI: Denies abdominal pain, +nausea, +vomiting, denies bloody stools or +diarrhea. [] : Denies dysuria. [] Musculoskeletal: Denies back pain or joint pain. + Generalized body aches [] Integument: Denies rash. [] Neurologic: Denies headache, focal weakness or sensory changes. [] Endocrine: Denies polyuria or polydipsia. [] Lymphatic: Denies swollen glands. [] Psychiatric: Denies depression or anxiety. [] (ISAMAR LABOY APRN) Heart Score: C/O Chest Pain: No (ISAMAR LABOY APRN) Current Medications: Current Medications Medications (Trade) Dose Ordered Sig/Ramy Start Time Stop Time Status Last Admin Dose Admin Acetaminophen (Tylenol) 650 mg 1X ONCE 03/06/21 14:15 03/06/21 14:16 UNV Ketorolac Tromethamine (Toradol 30mg Vial) 30 mg 1X ONCE 03/06/21 14:15 03/06/21 14:16 UNV Ondansetron HCl (Zofran) 4 mg 1X ONCE 03/06/21 14:15 03/06/21 14:16 UNV Sodium Chloride 1,000 ml @ 1,000 mls/hr 1X ONCE 03/06/21 14:15 03/06/21 15:14 UNV [facility] Allergies: Allergies: Allergies Coded Allergies Type Severity Reaction Last Updated Verified No Known Drug Allergies 10/26/15 No ([facility] Physical Exam: PE: Constitutional: Well developed, well nourished, no acute distress, non-toxic appearance. [] HENT: Normocephalic, atraumatic, bilateral external ears normal, oropharynx moist, no oral exudates, nose normal. [] Eyes: PERRLA, EOMI, conjunctiva normal, no discharge. [] Neck: Normal range of motion, no tenderness, supple, no stridor. [] Cardiovascular:Heart rate regular rhythm, no murmur [] Lungs & Thorax: Bilateral breath sounds clear to auscultation [] Abdomen: Bowel sounds normal, soft, no tenderness, no masses, no pulsatile masses. [] Skin: Warm, dry, no erythema, no rash. [] Back: No tenderness, no CVA tenderness. [] Extremities: No tenderness, no cyanosis, no clubbing, ROM intact, no edema. [] Neurologic: Alert and oriented X 3, normal motor function, normal sensory function, no focal deficits noted. [] Psychologic: Affect normal, judgement normal, mood normal. [] Normal physical exam ([facility] Current Patient Data: Vital Signs: Vital Signs Date Time Temp Pulse Resp B/P (MAP) Pulse Ox O2 Delivery O2 Flow Rate FiO2 03/06/21 13:52 100.4 94 24 110/57 (74) 95 Room Air 100.4 ([facility] EKG: EK and read by Dr. Cardenas as sinus rhythm and no STEMI ([facility] Radiology/Procedures: Radiology/Procedures: [] Impression: [facility] [address] [place] [address] IMAGING REPORT Signed PATIENT: MELISSA EVERETT ACCOUNT: [id number] : 1995 LOCATION: ER AGE: 25 SEX: F EXAM STATUS: REG ER ORD. PHYSICIAN: ISAMAR LABOY APRN REASON: cough, fever PROCEDURE: PORTABLE CHEST 1V XR CHEST 1V History: Cough, fever. Comparison: 06/07/2016, Technique: Portable AP radiograph of the chest. Findings: The lungs are adequately and symmetrically inflated. There is subtle bilateral lower lobe airspace opacity. No pleural effusion or pneumothorax. The cardiac mediastinal silhouette and pulmonary vasculature are within normal limits. Osseous structures and soft tissues are unremarkable. Impression: 1. Subtle bilateral lower lobe airspace opacity may represent atypical infectious process. Given symmetric appearance this also may be an artifact of breast attenuation. Electronically signed by: Darren Michelle MD (03/06/2021 3:25 PM) [facility] DICTATED and SIGNED BY: DARREN MICHELLE MD DATE: 03/06/21 [id number] (ISAMAR LABOY APRN) Course & Med Decision Making: Course & Med Decision Making Pertinent Labs and Imaging studies reviewed. (See chart for details) COVID-19 CRITERIA: The patient was evaluated during the global COVID-19 pandemic, and that diagnosis was suspected/considered upon their initial presentation. Their evaluation, treatment and testing was consistent with current guidelines for patients who present with complaints or symptoms that may be related to COVID-19. See HPI. Alert and oriented x4. Ambulatory steady gait. Speaks in full clear sentences. Abdomen is soft and nontender. No CVA tenderness. Lungs are clear to all station all lobes. She is not hypoxic at this time. No rashes. Patient does have pneumonia likely related to Covid. She is not hypoxic. She is given 2 L of fluid. I will send her home with Zofran and a ProAir inhaler. [] (ISAMAR LABOY APRN) Course & Med Decision Making I was the Attending physician on the above date of service of this patient. This patient was evaluated, examined, treated, and dispositioned from the emergency department by the mid-level practitioner. Although I was working at the time , no assistance was requested. Electronically signed, Avis Berman DO (AVIS BERMAN DO) Jesus Alberto Disclaimer: Jesus Alberto Disclaimer: This electronic medical record was generated, in whole or in part, using a voice recognition dictation system. (ISAMAR LABOY APRN) COVID-19 Patient Risks: Age 65 or older: No Sign of co-morbidity: No Exp to person + for COVID: Yes Exp to PUI: Yes Travel from affected area: No Lower respiratory symptoms: Yes Fever: Yes Other: Yes (N,V,D) (ISAMAR LABOY APRN) PPE Use: Full PPE with N95 mask or PAPR: Yes (ISAMAR LABOY APRN) Departure Departure Impression: Primary Impression: Pneumonia due to COVID-19 virus Disposition: 01 HOME / SELF CARE / HOMELESS Condition: STABLE Referrals: NO PCP (PCP) Patient Instructions: Pneumonia, Adult Additional Instructions: Follow-up with primary care provider after your 14 days of quarantine is up. Return to the emergency room for severe shortness of breath and chest pain or you cannot keep down any kind of fluids. Rest and quarantine. Take Tylenol or ibuprofen to help with your pain and to keep fever down. You have been tested for or diagnosed with COVID-19. It is an infection caused by a new type of coronavirus. COVID-19 will cause cold-like or mild flu symptoms in most. It can cause more severe symptoms like problems breathing in some. There is no treatment for COVID-19. The body will clear the infection over time. Self-care will help to ease discomfort. Steps to Take: Self-Care Rest as needed. Healthy habits may help you feel better. Steps include: Choose healthy foods including fruits and vegetables. Drink water throughout the day. Get plenty of sleep each night. If you smoke, try to quit. It may ease breathing. Avoid alcohol. Keep Others Healthy The virus can spread to others. Droplets are released every time you sneeze or cough. The droplets can get into the mouth, nose, or eyes of people near you and lead to infection. To lower the chances of spreading COVID-19 to others: Stay at home until your doctor has said it is safe to leave. If you tested positive this will mean staying isolated until both of the following are true: At least 7 days have passed since the start of illness. You are free of fever for at least 72 hours without the use of medicine. During this time: - Avoid public areas, events, or transportation. Do not return to work or school until your doctor has said it is safe to do so. - Call ahead if you need to go to a medical center. Let them know you may have COVID-19. It will help them guide you where to go. They may also ask you to wear a facemask when you come to the office. - If you call for emergency medical services, let them know you may have COVID- 19. While at home: - Try to avoid close contact with others. Stay about 6 feet away. - If possible, spend most of your time in a separate room from others. - Use a face mask if you will be in close contact with others such as sharing a room or vehicle. - Have someone wipe down common surfaces in the home. Use household catheterization laboratory technician every day on areas like doorknobs, counters, or sinks. - Cough or sneeze into a tissue. Throw the tissue away right after use. If a tissue is not available, cough or sneeze into your elbow. - Wash your hands often. Wash them after sneezing or coughing. Use soap and water and wash for at least 20 seconds. Alcohol based hand vacuum cleaner repair person can be used if soap and water is not available. - Do not prepare food for others. Avoid sharing personal items like forks, spoons, or toothbrushes. - Avoid close contact with pets while you are sick. There is no evidence of the virus passing to pets. This is a safety step until more is known about this virus. Isolation can be frustrating. Social interaction can help. Keep in touch with friends and family through phone and tech options. You can still interact with others in your home, just keep a safe distance of about 6 feet. Follow-up: Your doctors office will check in with you to see if there are any changes in your health. You may be asked to keep track of symptoms to share with them. They will also let you know when you are clear to be in public again. Problems to Look Out For: Contact your doctor if your recovery is not going as you expect. Get emergency care if you have problems such as: - Trouble breathing - Nonstop chest pain or pressure - Changes in awareness, confusion, or problems waking - Lips or face have bluish color - Worsening of symptoms If you think you have an emergency, call for emergency medical services right away. As taken from [facility] Ondansetron (ONDANSETRON ODT) 4 Mg Tab.rapdis 1 TAB PO PRN Q6-8HRS, #16 TAB Prov: ISAMAR LABOY OUTPATIENT CLERK 03/06/21 Albuterol Sulfate (PROAIR HFA INHALER) 8.5 Gm Hfa.aer.ad 1-2 PUFF INH PRN Q6HRS PRN for SHORTNESS OF BREATH, #1 EACH 0 Refills Prov: ISAMAR LABOY OUTPATIENT CLERK 03/06/21 Ibuprofen (IBUPROFEN) 600 Mg Tablet 600 MG PO PRN Q6HRS PRN for INFLAMMATION, #26 TAB Prov: ISAMAR LABOY OUTPATIENT CLERK 03/06/21 ISAMAR LABOY OUTPATIENT CLERK Mar 06, 2021 14:10 AVIS BERMAN DO Mar 07, 2021 14:06
[2021-03-06] MEDS ORDERED: KETOROLAC 30 MG/ML VIAL. IVP ONE (14:15)
[2021-03-06] MEDS ORDERED: ACETAMINOPHEN 325 MG TABLET. PO ONE (14:15)
[2021-03-06] MEDS ORDERED: ONDANSETRON PF 4 MG/2 ML VIAL. IVP ONE (14:15)
[2021-03-06] MEDS ORDERED: IV NORMAL SALINE 1000ML BAG 1,000 ML IV SCH (14:15)
[2021-03-06] MEDS ORDERED: IV NORMAL SALINE 1000ML BAG 1,000 ML IV ONE ×2 (14:15→15:30)
[2021-03-06 14:36] LABS: BILIRUBIN,URINE NEGATIVE (NEG); CLARITY,URINE CLOUDY; COLOR,URINE YELLOW; NITRITE,URINE NEGATIVE (NEG); PROTEIN,URINE NEGATIVE (NEG-TRACE)
[2021-03-06 15:04] LABS: BASO % 0 % (0-3); EOS % 0 % (0-3); HEMATOCRIT 29.6 % (36.0-47.0); HEMOGLOBIN 9.7 g/dL (12.0-15.5); LYMPH # 0.8 x10^3/uL (1.0-4.8); LYMPH % 16 % (24-48); MEAN CORPUSCULAR HEMOGLOBIN 23 pg (25-35); MEAN CORPUSCULAR HGB CONC 33 g/dL (31-37); MEAN CORPUSCULAR VOLUME 69 fL (79-100); MONO # 0.4 x10^3/uL (0.0-1.1); MONO % 8 % (0-9); NEUT # 3.8 x10^3/uL (1.8-7.7); NEUT % 75 % (31-73); PLATELET COUNT 167 x10^3/uL (140-400); RED BLOOD COUNT 4.27 x10^6/uL (3.50-5.40); RED CELL DISTRIBUTION WIDTH 16.9 % (11.5-14.5); WHITE BLOOD COUNT 5.1 x10^3/uL (4.0-11.0)
[2021-03-06 15:09] LABS: BACTERIA,URINE MODERATE /HPF (0-FEW); RBC,URINE OCC /HPF (0-2)
[2021-03-06 15:19] LABS: CALCIUM 7.9 mg/dL (8.5-10.1); CREATININE 0.5 mg/dL (0.6-1.0); GFR 150.3; POTASSIUM 3.3 mmol/L (3.5-5.1)
[2021-03-06 15:26] LABS: ALBUMIN 3.5 g/dL (3.4-5.0); ALBUMIN/GLOBULIN RATIO 0.9 (1.0-1.7); TOTAL BILIRUBIN 0.3 mg/dL (0.2-1.0); TOTAL PROTEIN 7.5 g/dL (6.4-8.2)
--- NOTE | 2021-03-06 15:28 | RAD ---
XR CHEST 1V History: Cough, fever. Comparison: 06/07/2016, Technique: Portable AP radiograph of the chest. Findings: The lungs are adequately and symmetrically inflated. There is subtle bilateral lower lobe airspace op acity. No pleural effusion or pneumothorax. The cardiac mediastinal silhouette and pulmonary vasculat ure are within normal limits. Osseous structures and soft tissues are unremarkable. Impression: 1. Subtle bilateral lower lobe airspace opacity may represent atypical infectious process. Given sym metric appearance this also may be an artifact of breast attenuation. Electronically signed by: Darren Payton MD (03/06/2021 3:25 PM) [facility]
[2021-03-06] MEDS ORDERED: POTASSIUM CHLORIDE 20 MEQ TABLET.ER. PO ONE (15:30)
[2021-03-06 16:15] LABS: ANISOCYTOSIS SLIGHT; HYPOCHROMIA MOD; MICROCYTOSIS MARKED; PLT ESTIMATE ADEQUATE (ADEQUATE); SPHEROCYTES FEW
[2021-03-06 16:40] VITALS: BP 104/53
[2021-03-06] MEDS ORDERED: ALBU2.5V8 INH (17:10)
[2021-03-06] MEDS ORDERED: ONDA4TAB12 PO (17:10)
[2021-03-06] MEDS ORDERED: IBUP-1007 PO (17:10)
== END 2021-03-06 18:06 | disposition home or self-care (01) ==
LOC: ER 13:45
DX: U07.1 COVID-19 (principal); J12.82 Pneumonia due to coronavirus disease 2019
CPT/HCPCS: 36415; 71045; 80053; 81001; 81025; 83690; 83735; 84484; 85025; 87086; 87426; 96361; 96374; 96375; 99285; J1885; J2405; J7030